=== PATIENT | male | born 1985 | race Caucasian/White ===

== ENCOUNTER 2024-02-19 15:07 | Outpatient (AMB) | payer MEDICARE, OTHER, MEDICAID, SELFPAY ==
[2024-02-19 15:12] VITALS: BP 130/86; PULSE 75; O2SAT 98; BMI 38.1
--- NOTE | 2024-02-19 15:12 | MHC.PC.OV ---
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 Patient has been my patient for long time and seen for more than years. Last seen in 2019 echocardiogram urine test thyroid test, cervical spine Ophthalmology sleep disorder breathing serum iron ferritin CRP vision, polysomnogram C-spine Echocardiogram done in August 2011 shows an EF of 65-70% no regional left ventricular wall abnormality diastolic filling patterns normal mild aortic regurg right ventricular systolic pressure is normal [facility] Medical History (Updated 02/19/24 @ 15:58 by Leticia Lake MD) Orthostasis Obesity (BMI 30.0-34.9) Down syndrome Family History (Updated 02/19/24 @ 15:37 by BERONICA Cabrera) Mother Hypertension Social History (Updated 02/19/24 @ 15:42 by BERONICA Cabrera) Household Members: Family Both parents involved: Yes Housing: House Patient Tobacco Use Status: Never used Tobacco Cognitive needs: No Hearing needs: Yes Vision needs: No Questionnaire PHQ-9 Over the last 2 weeks, how often have you been bothered by any of the following problems? 1. Little interest or pleasure in doing things: not at all 2. Feeling down, depressed, or hopeless: not at all 3. Trouble falling or staying asleep, or sleeping too much: not at all 4. Feeling tired or having little energy: not at all 5. Poor appetite or overeating: not at all 6. Feeling bad about yourself - or that you are a failure or have let yourself or your family down: not at all 7. Trouble concentrating on things, such as reading the newspaper or watching television: not at all 8. Moving or speaking so slowly that other people could have noticed. Or the opposite - being so fidgety or restless that you have been moving around a lot more than usual: not at all 9. Thoughts that you would be better off or of hurting yourself in some way: not at all Total score: 0 Source: Developed by Drs. Calvin Jacobs, Hilda Molina, Bryson Nance and colleagues, with an educational rain from [employer]. Thrive Questionnaire Date Thrive assessed: 02/19/24 I am a: Patient What is your living situation today?: I have a steady place to live Within the past 12 months, did the food you bought not last and you didn't have the money to get more?: Never true Within the past 12 months, did you worry whether your food would run out before you got money to buy more?: Never true Do you have trouble paying for medicines?: No Do you have trouble getting transportation to medical appointments?: No Do you have trouble paying your heating and electricity bill?: No Do you have trouble taking care of your child, family member or friend?: No Do you have trouble with day-to-day activities such as bathing, preparing meals, shopping, managing finances, etc.?: No Are you currently unemployed and looking for a job?: No Are you interested in more education?: No Please select the resources that you would like help with: None THRIVE Score: 0 AUDIT C Alcohol Use Questionnaire (AUDIT-C) 1. How often do you have a drink containing alcohol?: Never Total Score: 0 MARY-7 AMB Questionnaire MARY-7 Date MARY - 7 assessed: 02/19/24 Feeling nervous, anxious, or on edge: 2 = More than half the days Not being able to stop or control worryin = Not at all Worrying too much about different things: 0 = Not at all Trouble relaxin = Not at all Being so restless that it is hard to sit still: 0 = Not at all Becoming easily annoyed or irritable: 0 = Not at all Feeling afraid as if something awful might happen: 0 = Not at all Total MARY-7 score (0-4 normal; 5-9 mild; 10-14 moderate; 15-21 severe): 2 Source: Developed by Drs. Calvin Jacobs, Hilda Molina, Bryson Nance and colleagues, with an educational rain from [employer]. Physical exam (Primary Care) Vital Signs: Last Vital Signs Pulse 75 02/19/24 15:12 BP 130/86 02/19/24 15:12 Pulse Ox 98 02/19/24 15:12 Oxygen Delivery Method Room Air 02/19/24 15:12 BMI result Body Mass Index 38.1 Tobacco/Smoking Status: Tobacco use Status Tobacco use date assessed 02/19/24 02/19/24 15:39 Patient Tobacco Use Status Never used Tobacco 02/19/24 15:42 PHQ-9: PHQ-9 Score PHQ-9: Total score 0 02/19/24 15:42 Thrive Assessment: Date of Thrive Assessment Date Thrive assessed 02/19/24 02/19/24 15:42 Const General: alert; No acute distress HENMT Other: Right TM impacted cerumen 70% no swelling of the TM needed noted, left TM perforation Resp Auscultation: clear to auscultation bilaterally Cardio Rate: regular rate Rhythm: regular rhythm GI Inspection: Yes normal to inspection Extrem General: Yes normal to inspection and No edema Immunizations tetanus-diphtheria toxoids-Td 2 Lf unit-2 Lf unit/0.5 mL IM suspension Performing Provider: Leticia Lake MD [facility] Administered by: BERONICA Cabrera on 02/19/24 16:04 Dose Route Admin Location Dispensed Lot Number Expiration Date NDC Assistant Real Estate Manager 0.5 mL IM Left Deltoid 0.5 mL [id number] 11/10/24 [address]-6 [employer] VIS Given Date VIS Provided VIS Publication Date 02/19/24 Single Vaccine 21 Eligibility Eligibility Date Funding Source Not VFC Eligible 02/19/24 State funds Assessment and Plan Assessment & Plan (1) Down syndrome: Code(s): Q90.9 - Down syndrome, unspecified Plan: Discussed about blood work, vision exams and the hearing exams. (2) Orthostasis: Code(s): I95.1 - Orthostatic hypotension Plan: Continue with Fludcortisone and midodrine. Family will call with doses of this medication (3) Obesity (BMI 30.0-34.9): Code(s): E66.9 - Obesity, unspecified Plan: Diet and exercise (4) Insomnia: Code(s): G47.00 - Insomnia, unspecified Plan: Discussed about diet and exercise and melatonin to take every day. (5) Otitis media: Comment: Left ear Code(s): H66.90 - Otitis media, unspecified, unspecified ear Plan: Oral Antibiotic and ear drop sent in. Orders: Orders Complete Blood Count Auto Diff Today Q90.9 - Down syndrome, unspecified Comprehensive Met. Panel Today Q90.9 - Down syndrome, unspecified Lipid Panel Today E78.00 - Pure hypercholesterolemia, unspecified, Q90.9 - Down syndrome, unspecified Vitamin B12 and Folate Today Q90.9 - Down syndrome, unspecified Ferritin Today Q90.9 - Down syndrome, unspecified C Reactive Protein Today Q90.9 - Down syndrome, unspecified Thyroid Stimulating Hormone Today Q90.9 - Down syndrome, unspecified Free T4 (Free Thyroxine) Today Q90.9 - Down syndrome, unspecified Td State Immunization Today Z23 - Encounter for immunization Medications: New ehsgnymo-jehrwdshu-IB 3.5-10,000-1 mg/mL-unit/mL-% 4 drps otic (ear) left TID 10 mL 0RF 10 days H66.90 - Otitis media, unspecified, unspecified ear amoxicillin 875 mg PO BID 14 tabs 0RF H66.90 - Otitis media, unspecified, unspecified ear tetanus-diphtheria toxoids-Td 0.5 mL IM ONCE 0.5 mL 0RF Z23 - Encounter for immunization Coding Level of Care Code New Pt Level 4 (57938) Diagnoses Down syndrome Q90.9 Orthostasis I95.1 Obesity (BMI 30.0-34.9) E66.9 Insomnia G47.00 Otitis media H66.90
== END 2024-02-19 16:10 | disposition home or self-care (01) ==
PROVIDERS: PCP Internal Medicine; Visit Provider Internal Medicine
DX: Z23 Encounter for immunization (principal); Q90.9 Down syndrome, unspecified; I95.1 Orthostatic hypotension; G47.00 Insomnia, unspecified; H66.91 Otitis media, unspecified, right ear
CPT/HCPCS: 90471; 90714; 99204

== ENCOUNTER 2024-07-21 14:56 | Outpatient (AMB) | payer MEDICARE, OTHER, MEDICAID, SELFPAY ==
--- NOTE | 2024-07-21 15:03 | A.OFFPC_ITS ---
Vital Signs 07/21/24 15:04 Height 5 ft 3.9 in Weight 225 lb BMI 38.7 BP 120/70 Blood Pressure Location Lt brachial Position Sitting Pulse 77 Pulse Source Pulse Oximeter Pulse Oximetry (%) 97 Oxygen Delivery Method Room Air Intake Visit Reasons: Annual Exam Intake Note: Patient is here today for a physical. Electronic Design Engineer Required: No Facility Maintenance Manager: Present Accompanied by: parents Allergies No Known Allergies Allergy (Verified 07/21/24 15:04) Medication List - Last Reconciled 07/21/24 by Leticia Lake MD fludrocortisone mg PO BID midodrine mg PO BID wkamkufp-zibxwuxep-YZ 3.5-10,000-1 mg/mL-unit/mL-% 4 drps otic (ear) left TID 10 days Tobacco use date assessed: 07/21/24 Dental Screening Dental Screen Date: 02/19/24 HPI Annual Exam HPI Details 39-year-old obese male with down syndrom e coming in for an annual well visit last seen in January 2024. Had some concerns about insomnia. [facility] Medical History (Updated 07/21/24 @ 15:18 by Leticia Lake MD) Orthostasis Obesity (BMI 30.0-34.9) Down syndrome Surgical History (Updated 07/21/24 @ 15:09 by BERONICA Antoine) No pertinent past surgical history Family History (Updated 07/21/24 @ 15:24 by Leticia Lake MD) Mother Hypertension Maternal Grandmother Colon cancer Maternal Grandfather Colon cancer Father Bladder cancer Social History Household Members: Family Both parents involved: Yes Housing: House Patient Tobacco Use Status: Never used Tobacco e-Cigarette/Vaping Use: Never Used Second Hand Smoke Exposure: No service: No Cognitive needs: No Hearing needs: Yes Vision needs: No Questionnaire PHQ-9 Over the last 2 weeks, how often have you been bothered by any of the following problems? 1. Little interest or pleasure in doing things: nearly every day 2. Feeling down, depressed, or hopeless: not at all 3. Trouble falling or staying asleep, or sleeping too much: several days 4. Feeling tired or having little energy: not at all 5. Poor appetite or overeating: not at all 6. Feeling bad about yourself - or that you are a failure or have let yourself or your family down: not at all 7. Trouble concentrating on things, such as reading the newspaper or watching television: not at all 8. Moving or speaking so slowly that other people could have noticed. Or the opposite - being so fidgety or restless that you have been moving around a lot more than usual: not at all 9. Thoughts that you would be better off or of hurting yourself in some way: not at all Total score: 4 Depression Screening Interpretation: Positive Depression Screening Done: Yes Source: Developed by Drs. Calvin Jacobs, Hilda Molina, Bryson Nance and colleagues, with an educational rain from [employer]. Thrive Questionnaire Date Thrive assessed: 07/21/24 I am a: Parent/Caregiver What is your living situation today?: I have a steady place to live Within the past 12 months, did the food you bought not last and you didn't have the money to get more?: Never true Within the past 12 months, did you worry whether your food would run out before you got money to buy more?: Never true Do you have trouble paying for medicines?: No Do you have trouble getting transportation to medical appointments?: No Do you have trouble paying your heating and electricity bill?: No Do you have trouble taking care of your child, family member or friend?: No Do you have trouble with day-to-day activities such as bathing, preparing meals, shopping, managing finances, etc.?: No Are you currently unemployed and looking for a job?: No Are you interested in more education?: No Please select the resources that you would like help with: None Currently or been in a relationship where the following occur: No concerns reported THRIVE Score: 0 AUDIT C Alcohol Use Questionnaire (AUDIT-C) 1. How often do you have a drink containing alcohol?: Never Total Score: 0 MARY-7 AMB Questionnaire MARY-7 Date MARY - 7 assessed: 07/21/24 Feeling nervous, anxious, or on edge: 0 = Not at all Not being able to stop or control worryin = Not at all Worrying too much about different things: 0 = Not at all Trouble relaxin = Not at all Being so restless that it is hard to sit still: 0 = Not at all Becoming easily annoyed or irritable: 0 = Not at all Feeling afraid as if something awful might happen: 0 = Not at all Total MARY-7 score (0-4 normal; 5-9 mild; 10-14 moderate; 15-21 severe): 0 Source: Developed by Drs. Calvin Jacobs, Hilda Molina, Bryson Nance and colleagues, with an educational rain from [employer]. Review of Systems Const Denies poor appetite and Denies weakness Eyes Denies no additional complaints ENT Reports Normal hearing present, Denies dizziness, Denies nasal congestion, Denies tinnitus and Denies sore throat Card Denies chest pain, Denies syncope, Denies rapid heart rate and Denies dyspnea Resp Denies cough and Denies dyspnea GI Denies change in stool character, Reports constipation, Denies diarrhea, Denies nausea and Denies vomiting Denies dysuria and Denies urinary frequency Neuro Reports Normal hearing present, Denies confusion, Denies dizziness, Denies syncope and Denies weakness Psych Denies confusion Physical exam (Primary Care) Vital Signs: Last Vital Signs Pulse 77 07/21/24 15:04 BP 120/70 07/21/24 15:04 Pulse Ox 97 07/21/24 15:04 Oxygen Delivery Method Room Air 07/21/24 15:04 BMI result Body Mass Index 38.7 Tobacco/Smoking Status: Tobacco use Status Tobacco use date assessed 07/21/24 07/21/24 15:11 Patient Tobacco Use Status Never used Tobacco 07/21/24 15:11 e-Cigarette/Vaping Use Never Used 07/21/24 15:11 PHQ-9: PHQ-9 Score PHQ-9: Total score 4 07/21/24 15:11 Depression Screening Interpretation: Positive Thrive Assessment: Date of Thrive Assessment Date Thrive assessed 07/21/24 07/21/24 15:11 Currently or been in a relationship where the following occur: No concerns reported Const General: No confusion Orientation/consciousness: No confusion HENMT Head: Yes normocephalic Ears: external ears normal and TM's normal bilaterally Face and sinus: Yes normal facial exam Mouth: moist mucous membranes Throat: Yes tonsils normal Eyes Conjunctivae: conjunctivae normal Pupils: Equal, round and reactive pupils present and Pupil accommodation reflex normal Direct Ophthalmoscopy: normal light reflex Neck Neck: No lymphadenopathy Thyroid: Thyroid normal Chest Chest palpation & inspection: normal inspection of the chest Resp Effort & Inspection: normal respiratory effort and no audible wheezes Auscultation: clear to auscultation bilaterally, no crackles, no wheezes and lung sounds not diminished Cardio Rate: regular rate Rhythm: regular rhythm Peripheral pulses: radial pulses present and dorsalis pedis present GI Palpation (GI): no masses Auscultation: normal bowel sounds and normoactive bowel sounds Rectal Exam - Male: Yes deferred Skin General skin exam: no rashes or lesions noted Rashes: no rashes Neuro General: No confusion Cranial nerves: Yes Equal, round and reactive pupils present and Yes Normal hearing present Cognition (Neuro): normal cognition Gait exam (Neuro): Normal gait present Motor exam (neuro): 5/5 motor strength present throughout Deep tendon reflexes (DTR's): Right brachioradialis reflex intensity grade: 2+, Left brachioradialis reflex intensity grade: 2+, Right patellar reflex intensity grade: 2+ and Left patellar reflex intensity grade: 2+ Extrem General: No edema Coding Level of Care Code Est Pt Prev Care [id number]([id number]) Diagnoses Annual physical exam Z00.00 Obesity (BMI 30.0-34.9) E66.9 Down syndrome Q90.9 Orthostasis I95.1 Assessment & Plan Assessment & Plan (1) Annual physical exam: Code(s): Z00.00 - Encounter for general adult medical examination without abnormal findings Category: Medical Plan: Patient is advised to eat healthy, keep well hydrated, keep active and have adequate sleep. (2) Obesity (BMI 30.0-34.9): Code(s): E66.9 - Obesity, unspecified Category: Medical Plan: Diet and exercise reminded about the blood work (3) Down syndrome: Code(s): Q90.9 - Down syndrome, unspecified Category: Medical Plan: Supportive treatment (4) Orthostasis: Code(s): I95.1 - Orthostatic hypotension Category: Medical Plan: Keep well hydrated, on fluid cortisone and midodrine. Keep well hydrated Orders: Orders Hemoglobin A1c Today Q90.9 - Down syndrome, unspecified Medications: Refilled miwsaekc-mawxcohek-FP 3.5-10,000-1 mg/mL-unit/mL-% 4 drps otic (ear) left TID 10 days 10 mL 0RF H66.90 - Otitis media, unspecified, unspecified ear
[2024-07-21 15:04] VITALS: BP 120/70; PULSE 77; O2SAT 97; BMI 38.7
== END 2024-07-21 15:39 | disposition home or self-care (01) ==
PROVIDERS: PCP Internal Medicine; Visit Provider Internal Medicine
DX: Z00.00 Encounter for general adult medical examination without abnormal findings (principal); E66.812 Obesity, class 2; Z68.38 Body mass index [BMI] 38.0-38.9, adult; Q90.9 Down syndrome, unspecified; I95.1 Orthostatic hypotension

== ENCOUNTER → 2024-07-21 14:56 | Outpatient (BNVA) | payer MEDICARE, OTHER, MEDICAID, SELFPAY | PROVIDERS: PCP Internal Medicine; Visit Provider Internal Medicine | DX: Z00.00 Encounter for general adult medical examination without abnormal findings (principal); E66.9 Obesity, unspecified; Z68.38 Body mass index [BMI] 38.0-38.9, adult; I95.1 Orthostatic hypotension; Q90.9 Down syndrome, unspecified; Z23 Encounter for immunization | CPT/HCPCS: 90471; 90656; 96127; 99395 ==

== ENCOUNTER 2024-11-03 16:06 | Outpatient (AMB) | payer MEDICARE, MEDICAID, SELFPAY ==
--- NOTE | 2024-11-03 16:36 | MHC.PC.OV ---
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 During the visit, it was noted that the patient is currently taking fludrocortisone and midodrine for blood pressure control. The patient has not undergone recent blood work and there was a discussion regarding the need for laboratory evaluation to monitor kidney and liver function due to ongoing medication use. The patient's blood pressure is reportedly stable under the current treatment regimen. There have been no recent changes in medication or significant complaints of symptoms. The patient seldom leaves home, minimizing exposure to respiratory infections such as COVID-19, influenza, and RSV. Vaccination status was addressed, specifically confirming receipt of the flu shot at this facility. There were no significant vaccine-related issues reported. It was also mentioned that the patient occasionally interacts verbally at home, as prompted by family members, although there is a noted variability in his expressive language capacity. [facility] Medical History (Updated 07/21/24 @ 15:18 by Leticia Lake MD) Orthostasis Obesity (BMI 30.0-34.9) Down syndrome Surgical History No pertinent past surgical history Family History Mother Hypertension Maternal Grandmother Colon cancer Maternal Grandfather Colon cancer Father Bladder cancer Social History Household Members: Family Both parents involved: Yes Housing: House Patient Tobacco Use Status: Never used Tobacco e-Cigarette/Vaping Use: Never Used Second Hand Smoke Exposure: No service: No Current occupational status: unemployed and disabled Cognitive needs: No Hearing needs: Yes Vision needs: No Questionnaire PHQ-9 Over the last 2 weeks, how often have you been bothered by any of the following problems? 1. Little interest or pleasure in doing things: not at all 2. Feeling down, depressed, or hopeless: not at all 3. Trouble falling or staying asleep, or sleeping too much: not at all 4. Feeling tired or having little energy: not at all 5. Poor appetite or overeating: not at all 6. Feeling bad about yourself - or that you are a failure or have let yourself or your family down: not at all 7. Trouble concentrating on things, such as reading the newspaper or watching television: not at all 8. Moving or speaking so slowly that other people could have noticed. Or the opposite - being so fidgety or restless that you have been moving around a lot more than usual: not at all 9. Thoughts that you would be better off or of hurting yourself in some way: not at all Total score: 0 Source: Developed by Drs. Calvin Jacobs, Hilda Molina, Bryson Nance and colleagues, with an educational rain from [employer]. Thrive Questionnaire Date Thrive assessed: 11/03/24 I am a: Parent/Caregiver What is your living situation today?: I have a steady place to live Within the past 12 months, did the food you bought not last and you didn't have the money to get more?: Never true Within the past 12 months, did you worry whether your food would run out before you got money to buy more?: Never true Do you have trouble paying for medicines?: No Do you have trouble getting transportation to medical appointments?: No Do you have trouble paying your heating and electricity bill?: No Do you have trouble taking care of your child, family member or friend?: No Do you have trouble with day-to-day activities such as bathing, preparing meals, shopping, managing finances, etc.?: No Are you currently unemployed and looking for a job?: No Are you interested in more education?: No Please select the resources that you would like help with: None Currently or been in a relationship where the following occur: No concerns reported THRIVE Score: 0 AUDIT C Alcohol Use Questionnaire (AUDIT-C) 1. How often do you have a drink containing alcohol?: Never Total Score: 0 MARY-7 AMB Questionnaire MARY-7 Date MARY - 7 assessed: 11/03/24 Feeling nervous, anxious, or on edge: 0 = Not at all Not being able to stop or control worryin = Not at all Worrying too much about different things: 0 = Not at all Trouble relaxin = Not at all Being so restless that it is hard to sit still: 0 = Not at all Becoming easily annoyed or irritable: 0 = Not at all Feeling afraid as if something awful might happen: 0 = Not at all Total MARY-7 score (0-4 normal; 5-9 mild; 10-14 moderate; 15-21 severe): 0 Source: Developed by Drs. Calvin Jacobs, Hilda Molina, Bryson Nance and colleagues, with an educational rain from [employer]. Physical exam (Primary Care) Vital Signs: Last Vital Signs Pulse 69 11/03/24 16:37 BP 130/72 11/03/24 16:37 Pulse Ox 98 11/03/24 16:37 Oxygen Delivery Method Room Air 11/03/24 16:37 BMI result Body Mass Index 38.7 Tobacco/Smoking Status: Tobacco use Status Tobacco use date assessed 11/03/24 11/03/24 16:45 Patient Tobacco Use Status Never used Tobacco 11/03/24 16:38 e-Cigarette/Vaping Use Never Used 11/03/24 16:38 PHQ-9: PHQ-9 Score PHQ-9: Total score 0 11/03/24 17:05 Thrive Assessment: Date of Thrive Assessment Date Thrive assessed 11/03/24 11/03/24 16:38 Currently or been in a relationship where the following occur: No concerns reported Const General: alert; No acute distress Eyes Conjunctivae: conjunctivae normal Resp Auscultation: clear to auscultation bilaterally Cardio Rate: regular rate Rhythm: regular rhythm GI Inspection: Yes normal to inspection Extrem General: Yes normal to inspection and No edema Coding Level of Care Code Est Pt Level 4 (62164) Diagnoses Obesity (BMI 30.0-34.9) E66.9 Down syndrome Q90.9 Assessment & Plan Assessment & Plan (1) Obesity (BMI 30.0-34.9): Code(s): E66.9 - Obesity, unspecified Category: Medical (2) Down syndrome: Code(s): Q90.9 - Down syndrome, unspecified Category: Medical Plan - Guardianship paperwork has been reviewed, and no issues were identified. - Continue current management of hypertension with fludrocortisone and midodrine. - Obtain laboratory blood work to evaluate renal and hepatic function; this is needed to ensure safe ongoing management with current medications. - Monitor for respiratory infections; advised on preventative measures including limiting exposure and symptomatic precautions. - The patient has received the influenza vaccine as part of ongoing preventive health care. - Advised to monitor verbal communication activities with family for improved engagement.
[2024-11-03 16:37] VITALS: BP 130/72; PULSE 69; O2SAT 98; BMI 38.7
--- OUTSIDE RECORDS SUMMARY | 2024-11-03 17:18 | XMS_ITS | Clinical Summary ---
Author Organization [facility] Address [address] [place] [address] Phone Care Team Providers Care Watch And Clock Repairer Name Role Phone Unavailable Primary Care Provider Unavailabl e Immunizations Name Administration Dates Next Due DTP 09/30/1991, 8,01/11/1987,10/15,1986 Hep B, ped/adol 09/26/2000,05/03/2000,01/26/2000 Hib (HbOC) 02/21/1988 MMR 01/26/2000,07/14/1987 Meningococcal Conj (Menactra) MCV4P 12/19/2007 OPV 09/30/1991, 8,1986,08/21 Td (adult) (MBL), 2 Lf tetan us toxoid, PF, adsorbed 01/26/2000 Tdap 12/19/2007 Social History Tobacco Use Types Packs/Day Years Used Date Smoking Tobacco: Never Assessed Sex and Gender Information Value Date Recorded Sex Assigned at Not on file Legal Sex Male 4:25 PM EDT Gender Identity Not on file Sexual Orientation Not on file Plan of Treatment Health Maintenance Due Date Last Done Comments Varicella Vaccines (1 of 2 - 13+ 2-dose series) 02/23/2000 DTaP,Tdap,and Td Vaccines (7 - Td or Tdap) 12/18/2017 12/19/2007, 01/26/2000, 09/30/1991, Additional history exists Influenza Vaccines (#1) 2024 COVID-19 Vaccine ( season) 2024 HIB Vaccines Completed 02/21/1988 IPV Vaccines Completed 09/30/1991, 10/02, 1986, Additional history exists MMR Vaccines Completed 01/26/2000, 07/14/1987 Hepatitis B Vaccines Completed 09/26/2000, 05/03/2000, 01/26/2000 Meningococcal Vaccine Aged Out 12/19/2007 No leah el eligible based on patient's age to complete this topic HPV Vaccines Aged Out No longer eligi ble based on patient's age to complete this topic Hepatitis A Vaccines Aged Out No long er eligible based on patient's age to complete this topic Men B Vaccine Aged Out No longer elig ible based on patient's age to complete this topic Pneumococcal Vaccine Aged Out No long er eligible based on patient's age to complete this topic
--- OUTSIDE RECORDS SUMMARY | 2024-11-03 17:18 | XMS_ITS | Encounter Summary ---
Author Organization [facility] Address [address] [place] [address] Phone Care Team Providers Care Exercise Instructor Name Role Phone Logan Ascencio MD Primary Care Provider [phone] Encounter Details Date Type Department Care Team (Late st Contact Info) Description 05/17/2017 Conversion Encounter [facility] [address] [place] [address] Social History Tobacco Use Types Packs/Day Years Used Date Smoking Tobacco: Never Assessed Sex and Gender Information Value Date Recorded Sex Assigned at Not on file Legal Sex Male 4:25 PM EDT Gender Identity Not on file Sexual Orientation Not on file documented as of this encounter Plan of Treatment Not on file documented as of this encounter Visit Diagnoses Not on filedocumented in this encounter Care Teams Exercise Instructor Relationship Specialty Start Date End Date Logan Ascencio MD [address] [place] [address] PCP - General 05/11/17 11/22/22 documented as of this encounter
== END 2024-11-03 17:13 | disposition home or self-care (01) ==
PROVIDERS: PCP Internal Medicine; Visit Provider Internal Medicine
DX: E66.9 Obesity, unspecified (principal); Q90.9 Down syndrome, unspecified; Z68.38 Body mass index [BMI] 38.0-38.9, adult

== ENCOUNTER → 2024-11-03 16:06 | Outpatient (BNVA) | payer MEDICARE, MEDICAID, SELFPAY | PROVIDERS: PCP Internal Medicine; Visit Provider Internal Medicine | DX: Q90.9 Down syndrome, unspecified (principal); E66.9 Obesity, unspecified | CPT/HCPCS: 99212 ==

== ENCOUNTER 2025-01-20 14:20 | Outpatient (AMB) | payer MEDICARE, MEDICAID, SELFPAY ==
--- NOTE | 2025-01-20 14:29 | AM.OFFWIN_ITS ---
Intake Vital Signs 01/20/25 14:31 Weight 228 lb BP 120/80 Blood Pressure Location Rt brachial Position Sitting Pulse 78 Pulse Source Pulse Oximeter Pulse Oximetry (%) 98 Oxygen Delivery Method Room Air Intake Visit Reasons: EP Bruising/swelling LT eye Intake Note: Patient here for swollen and bruised left eye that he woke up too. Patient Tobacco Use Status: Never used Tobacco Agricultural Produce Commission Agent: Present (Mother Jesi and Father Sam) Accompanied by: Parent Allergies No Known Allergies Allergy (Verified 01/20/25 14:32) Do you need a note to return to daycare/school/sports/work: No HPI HPI Comments History of Present Illness Details This is a 39-year-old male with a past medical history of Down syndrome presenting for evaluation of bruising and swelling around his left eye. The patient's father, who is present states that he saw his son at approximately 1:30 a.m. in the morning with bruising around his left eye. There is no report of any injury or trauma. The patient will reportedly watch TV in his bed where he sleeps and occasionally balance on the bed. Patient is nonverbal and unable to contribute to the history of present illness. [facility] Medical History (Updated 01/20/25 @ 15:02 by Sasha Álvarez PA-C) Orthostasis Obesity (BMI 30.0-34.9) Down syndrome Surgical History No pertinent past surgical history Family History Mother Hypertension Maternal Grandmother Colon cancer Maternal Grandfather Colon cancer Father Bladder cancer Social History Household Members: Family Both parents involved: Yes Housing: House Patient Tobacco Use Status: Never used Tobacco e-Cigarette/Vaping Use: Never Used Second Hand Smoke Exposure: No service: No Current occupational status: unemployed and disabled Cognitive needs: No Hearing needs: Yes Vision needs: No Review of Systems Const Unobtainable due to mental status (Down syndrome, non.verbal at baseline per parents.) Physical Exam Vital Signs: Last Vital Signs Pulse 78 01/20/25 14:31 BP 120/80 01/20/25 14:31 Pulse Ox 98 01/20/25 14:31 Oxygen Delivery Method Room Air 01/20/25 14:31 Const General: cooperative, no acute distress, well developed, alert, Physically active and other (nonverbal); No acute distress Orientation/consciousness: No oriented to person, No oriented to place and No oriented to time Limitations: other limitations (intellectual disability associated with Down syndrome) HEENT Other: Left periorbital ecchymosis and edema that is significantly tender to touch. Head: No normal to inspection, Yes No palpable skull fracture present and Yes scalp tenderness Ears: other (unable to determine hearing; no hemotympanum bilaterally) General nose exam: Normal external nose present (no overt nasal bone tenderness) Face and sinus: Yes ecchymosis and Yes edema (left orbital edema with tenderness and significant ecchymosis) Eyes General: appearance abnormal, both eyes and dysmorphic Periorbital: periorbital findings abnormal left periorbital swelling, periorbital tenderness and periorbital ecchymosis Conjunctivae: other (unable to adequately evaluate secondary to edema) Back/Spine/Pelvis Cervical Spine: cervical ROM normal, No cervical muscular tenderness, No Cer vical spine tenderness and No step off deformity Neuro General: No oriented to person, No oriented to place and No oriented to time Assessment & Plan Assessment & Plan (1) Traumatic periorbital ecchymosis: Comment: Given the lack of history coupled with this patient's physical examination and facial tenderness, patient will be transferred to the [facility] ED for further evaluation and care. The parents are in agreement with this plan of care. Code(s): S05.10XA - Contusion of eyeball and orbital tissues, unspecified eye, initial encounter Qualifiers: Encounter type: initial encounter Laterality: left Qualified Code(s): S05.12XA - Contusion of eyeball and orbital tissues, left eye, initial encounter Plan: and Mrs. Douglass will transport Wild to the ED immediately via private vehicle. LEODAN Duque received expect at [id number]. Coding Level of Care Code Est Pt Level 3 (06109) Diagnoses Traumatic periorbital ecchymosis of left eye, initial encounter S05.12XA Encounter type: initial encounter Laterality: left Time Spent (min) 20
[2025-01-20 14:31] VITALS: BP 120/80; PULSE 78; O2SAT 98
--- OUTSIDE RECORDS SUMMARY | 2025-01-20 17:12 | XMS_ITS | Clinical Summary ---
Author Organization [facility] Address [address] [place] [address] Phone Care Team Providers Care Lead Fire Protection Engineer Name Role Phone Unavailable Primary Care Provider Unavailabl e Immunizations Immunization Administration Dates Next Due DTP 09/30/1991, 8,01/11/1987,10/15,1986 [...]
--- OUTSIDE RECORDS SUMMARY | 2025-01-20 17:12 | XMS_ITS | Encounter Summary ---
Author Organization [facility] Address [address] [place] [address] Phone Care Team Providers Care Organizational Development Consultant Name Role Phone Logan Ascencio MD Primary Care Provider [phone] Encounter Details Date Type Department Care Team (Late st Contact Info) Description 05/17/2017 Conversion Encounter [facility] [address] [place] [address] Social History Tobacco Use Types Packs/Day Years [...] on filedocumented in this encounter Care Teams Organizational Development Consultant Relationship Specialty Start Date End Date Logan Ascencio MD [address] [place] [address] PCP - General 05/11/17 11/22/22 documented as of this encounter
== END 2025-01-20 14:58 | disposition home or self-care (01) ==
PROVIDERS: PCP Internal Medicine; Visit Provider Physician Assistant
DX: S05.12XA Contusion of eyeball and orbital tissues, left eye, initial encounter (principal)

== ENCOUNTER → 2025-01-20 14:20 | Outpatient (BNVA) | payer MEDICARE, MEDICAID, SELFPAY | PROVIDERS: PCP Internal Medicine; Visit Provider Physician Assistant | DX: Z13.89 Encounter for screening for other disorder (principal) | CPT/HCPCS: 99212 ==

== ENCOUNTER 2025-01-20 15:11 | Emergency (ER) | payer MEDICARE, MEDICAID, SELFPAY ==
--- NOTE | ~2025-01-20 | CT_ITS ---
CLINICAL HISTORY: orbital fracture CT maxillofacial without contrast Comparison: None Findings: Subtle cortical irregularity identified of the distal tip of the left nasal bone on axial image number 40 of series 19. Minimal cortical irregularity of the anterior nasal septum identified on axial image number 37 of series 19. Moderate left periorbital hematoma identified extending over the left zygomatic arch. The bilateral globes appear intact. No retrobulbar hematoma. The paranasal sinuses and left mastoid air cells appear clear. Mild opacification of the right inferior mastoid air cells. Soft tissues unremarkable Impression: 1. Subtle cortical irregularity identified of the distal tip of the left nasal bone and anterior aspect of the nasal septum, possibly consistent with subtle age-indeterminate fracture injuries or congenital findings. Clinical correlation is advised. No other CT evidence for an acute fracture or dislocation injury of the facial bones. 2. Moderate left periorbital hematoma extending over the left zygomatic arch. The bilateral globes appear intact. No retrobulbar hematoma. This document has been electronically signed by: Jay La MD on 01/21/2025 02:56:18
--- NOTE | ~2025-01-20 | CT_ITS ---
CLINICAL HISTORY: possible trauma. left orbital ecchymosis CT head without contrast Comparison: None Findings: No intracranial mass, midline shift, hydrocephalus, or acute hemorrhage. Visualized paranasal sinuses and left mastoid air cells appear clear. Mild opacification of the right inferior mastoid air cells. No acute skull fracture. Moderate left periorbital hematoma visualized extending over the left zygomatic arch. Impression: 1. No acute intracranial abnormality. No acute intracranial hemorrhage. 2. Moderate left periorbital hematoma, extending over the left zygomatic arch. No acute calvarial fracture. This document has been electronically signed by: Jay La MD on 01/21/2025 02:59:25
[2025-01-20 15:55] VITALS: BP 00/00; PULSE 63; RESP 18; TEMP 36.8; O2SAT 97; BMI 37.2
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
[2025-01-20] MEDS: LORazepam 1 MG TABLET 2 MG PO (21:57)
[2025-01-20] MEDS: diphenhydrAMINE HCL 25 MG CAPSULE PO (23:36)
[2025-01-21] MEDS: Ketamine HCl 500 MG/5 ML VIAL 110 MG IM (01:35)
[2025-01-21 03:15] VITALS: BP 118/68; PULSE 72; RESP 18; TEMP 36.6; O2SAT 97
== END 2025-01-21 03:30 | disposition home or self-care (01) ==
PROVIDERS: Emergency Provider Emergency Medicine; PCP Internal Medicine
DX: S00.12XA Contusion of left eyelid and periocular area, initial encounter (principal); S09.90XA Unspecified injury of head, initial encounter; F41.9 Anxiety disorder, unspecified; R51.9 Headache, unspecified; X58.XXXA Exposure to other specified factors, initial encounter; Y93.9 Activity, unspecified; Y92.9 Unspecified place or not applicable; Y99.8 Other external cause status
CPT/HCPCS: 70450; 70486; 96372; 99212; 99284

== ENCOUNTER → 2025-01-21 01:35 | Outpatient (BNV) | payer MEDICARE, MEDICAID, SELFPAY | PROVIDERS: Emergency Provider Emergency Medicine; PCP Internal Medicine; Visit Provider Radiology Diagnostic Radiology | DX: S05.10XA Contusion of eyeball and orbital tissues, unspecified eye, initial encounter (principal) | CPT/HCPCS: 70450; 70486 ==